=== PATIENT | male | born 1965 | race Caucasian/White ===

== ENCOUNTER 2021-07-13 16:56 | Inpatient (IN) | payer BC, SELFPAY ==
--- NOTE | ~2021-07-13 | CT_ITS ---
EXAMINATION: CT abdomen pelvis w con DATE: 07/13/2021 18:26 INDICATION: Bowel obstruction. Constipation. TECHNIQUE: Computed tomography (CT) of the abdomen and pelvis was performed with 100 mL Omnipaque 300 intravenous contrast. Automated exposure control and iterative reconstruction technique were employe d. The dose-length product was 1799.26 mGy-cm. COMPARISON: None. FINDINGS: The visualized portions of the lung bases demonstrate mild atelectasis. No pleural effusion . The heart size is normal. No pericardial effusion. The liver, gallbladder, spleen, pancreas, adrena l glands, and kidneys are normal. There is an umbilical hernia containing sigmoid colon. There is fat stranding in the hernia and posterior to the hernia. There are no dilated loops of bowel. The append ix is normal. There are no pathologically enlarged lymph nodes. There is no free intraperitoneal flui d. There is severe lower lumbar spondylosis. There is mild thoracic spondylosis. IMPRESSION: 1. Umbilical hernia containing nonobstructed sigmoid colon. Associated fat stranding may be inflammat ion or scarring. Reviewed, dictated and finalized at location A. IMPRESSION: 1. Umbilical hernia containing nonobstructed sigmoid colon. Associated fat stra nding may be inflammation or scarring.
[2021-07-13 16:59] VITALS: BP 182/76; PULSE 63; RESP 18; TEMP 36.3; O2SAT 100
[2021-07-13 17:15] VITALS: PULSE 64; RESP 16; TEMP 36.9; O2SAT 97
--- NOTE | 2021-07-13 17:28 | ED.ABDPAIN ---
HPI - Abdominal Pain General Chief Complaint: Abdominal Pain Stated Complaint: SBO, HERNIA Time Seen by Provider: 07/13/21 17:28 Source: patient and family Mode of arrival: ambulatory Limitations: no limitations History of Present Illness HPI narrative: Patient is 55 years old white male came to the emergency room with a diagnosis of bowel obstruction. Patient had history of no bowel movement for the last 10 days, was seen by his family physician 3 days ago, and was discharged on stool softeners without improvement, today was seen by his family physician again who ordered CT scan of the abdomen and showed that he had bowel obstruction with. Then was told to go to [facility]. Patient came without any CD or CT scan report. He denies any fever, chills, nausea, vomiting, abdominal pain. History of umbilical hernia for years, usually is reducible, was not able to reduce it for the last 48 hours. Related Data Home Medications Medication Instructions Recorded Confirmed atorvastatin 20 mg tablet 20 mg PO DAILY 12/15/20 01/03/21 hydrochlorothiazide 25 mg tablet 25 mg PO DAILY 12/15/20 01/03/21 losartan 50 mg tablet 50 mg PO DAILY 12/15/20 01/03/21 metformin 500 mg tablet 500 mg PO TID 12/15/20 01/03/21 cholecalciferol (vitamin D3) 125 125 mcg PO DAILY 01/03/21 01/03/21 mcg (5,000 unit) capsule semaglutide 0.25 mg SUBCUT WEEKLY 01/03/21 01/03/21 Allergies Allergy/AdvReac Type Severity Reaction Status Date / Time No Known Allergies Allergy Verified 07/13/21 17:14 Review of Systems Review of Systems: All systems reviewed & are unremarkable except as noted in HPI and below PMFSH Past Medical History Medical History History of diabetes mellitus History of high cholesterol Surgical History Surgical History History of lateral meniscus repair of right knee Family History Family History Father Asthma Hypoglycemic disorder Mother Diabetes mellitus Hypertension Social History Social History Smoking status: Former smoker Tobacco type: cigarettes Alcohol intake: current Alcohol use details: Socially Substance use: never Substance use type: does not use 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, [employer] Gender identity (if verbalized by the patient): Male Exam Narrative: General appearance: Well-developed, well-nourished Skin: Normal color Head: Normocephalic, nontraumatic Eyes: Clear conjunctiva ENT: Oropharynx normal, ears normal, nose normal Neck: Supple, nontender Chest and respiratory: Airway patent, no respiratory distress, no accessory muscle use Heart: Regular rate/rhythm Abdomen: Soft, diffusely tender with deep palpation, umbilical hernia 12 x 12 cm, irreducible, tender with deep palpation the skin of the hernia is shining, slightly red and bluish, no organomegaly, no bowel sounds Vascular: Normal peripheral pulses, normal capillary refill. 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 Date: 07/13/21 Time: 18:52 Consultation #2: Dr. Ramirez, Admit to hospitalist Date: 07/13/21 Time: 18:52 Vital Signs Vital signs: Vital Signs Temperature 36.3 C L 07/13/21 16:59 Pulse Rate 63 07/13/21 16:59 Respiratory Rate 18 07/13/21 16:59 Blood Pressure 182/76 H 07/13/21 16:59 Pulse Oximetry 100
[2021-07-13 17:38] LABS: Appearance Urine Clear (Clear); Basophils Absolute Auto 0.1 K/mm3 (0.0-0.1); Basophils Percent Auto 0.6 % (0.2-1.2); Bilirubin Urine Negative (Negative); Blood Urine Negative (Negative); Eosinophils Absolute Auto 0.1 K/mm3 (0-0.3); Eosinophils Percent Auto 1.3 % (0-4.4); Glucose Urine UA Negative (Negative); Hematocrit 39.8 % (42.0-52.0); Hemoglobin 12.7 g/dL (14.0-18.0); Immature Granulocyte Absolute 0.03 K/mm3 (0.00-0.031); Immature Granulocyte Percent A 0.3 % (0-0.5); Ketones Urine Negative (Negative); Leukocyte Esterase Ur Negative LEU/UL (Negative); Lymphocytes Absolute Auto 3.57 K/mm3 (0.9-3.2); Lymphocytes Percent Auto 33.5 % (18.3-44.2); Mean Corpuscular HGB Conc 31.9 g/dl (32-36); Mean Corpuscular Hemoglobin 28.8 pg (26-34); Mean Corpuscular Volume 90.2 fl (80-100); Mean Platelet Volume 10.9 fl (7.4-10.4); Monocytes Absolute Auto 0.7 K/mm3 (0.1-0.6); Monocytes Percent Auto 6.2 % (2.6-8.5); Neutrophils Absolute Auto 6.2 K/mm3 (1.3-6.7); Neutrophils Percent Auto 58.1 % (45.5-73.1); Nitrate Urine Negative (Negative); Platelet Count Result 316 k/mm3 (150-375); Protein Urine Negative (Negative); Red Blood Count 4.41 M/mm3 (4.6-6.20); Red Cell Distribution Width 13.2 % (11.5-14.5); Urobilinogen Urine 0.2 mg/dL (<2.0); White Blood Count 10.7 K/mm3 (4.5-10.0)
[2021-07-13 17:45] LABS: Add Urine Microscopic? NO; Color Urine Light Yellow (Yellow)
[2021-07-13 17:46] LABS: Alanine Aminotransferase 33 U/L (6-50); Albumin Level 4.2 g/dL (3.5-5.1); Alkaline Phosphatase 83 U/L (38-126); Anion Gap 10 mmol/L (8-16); Aspartate Amino Transferase 38 U/L (17-59); Bilirubin,Total 0.4 mg/dL (0.2-1.3); Blood Urea Nitrogen 12 mg/dL (9-20); Calcium 8.7 mg/dL (8.4-10.2); Carbon Dioxide 28 mmol/L (22-30); Chloride 101 mmol/L (98-107); Estimated CRCL calculation 162 ml/min; Estimated Glomerular Filt Rate > 60; Glucose 114 mg/dL (65-110); Lipase 112 U/L (23-300); Potassium 3.4 mmol/L (3.4-5.0); Sodium 139 mmol/L (137-145)
[2021-07-13] MEDS: SODIUM CHLORIDE 0.9% IV 1,000 ML 999 ML IV CONT (17:58)
[2021-07-13 19:16] LABS: Lactic Acid Reflex 1.1 mmol/L (0.7-2.0)
[2021-07-13] MEDS: LACTATED RINGERS 1,000 ML 150 ML IV CONT (19:33)
--- NOTE | 2021-07-13 20:02 | PM.IMHP ---
H&P: HPI History of Present Illness Date/Time: 07/13/21 20:02 Chief Complaint: Abdominal pain. Narrative: This is a 55-year-old male with past medical history significant for morbid obesity, hypertension, dyslipidemia, diabetes. Patient presents to the emergency room after he was seen and evaluated at his primary care physician's office due to constipation for 10 days has not been able to have a bowel movement however has been able to pass gas has been able to eat his meals denies any nausea, vomiting, no diarrhea, no hematemesis, no melena, no fevers, no rigors, no chills, no cough, no shortness of breath, no sputum production. Preliminary workup was significant for CT of abdomen and pelvis with umbilical hernia. According to patient this is easily reducible however has not been able to do so in the last 2 days or so also noticed discoloration via lashes purple in the area as well however denied any pain at the time of my visit. Patient has been admitted for further evaluation management and treatment. Review of Systems Review of Systems: Constipation for 10 days, non reducible umbilical hernia and change in color, abdominal pain. Constitutional: Constitutional: Denies chills, Denies fever(s), Denies malaise, Denies night sweats and Denies poor appetite Eyes: Eyes: Denies change in vision ENT: Denies dysphagia, Denies nasal congestion, Denies nasal discharge, Denies nasal obstruction and Denies odynophagia Cardiovascular: Cardiovascular: Reports pedal edema, Denies irregular heart rhythm, Reports leg edema, Denies lightheadedness, Denies radiating jaw, neck or arm pain, Denies palpitations, Denies dyspnea, Denies dyspnea on exertion and Denies orthopnea Respiratory: Respiratory: Denies cough and Denies dyspnea Gastrointestinal: Gastrointestinal: Reports abdominal pain, Denies melena, Denies hematochezia, Denies change in stool character, Denies coffee ground emesis, Reports constipation, Denies dysphagia, Denies dyspepsia, Denies heartburn, Denies diarrhea and Denies vomiting Comments: No reducible umbilical hernia Genitourinary: Genitourinary: Denies dysuria Musculoskeletal: Musculoskeletal: Denies arthralgias and Denies joint swelling Integumentary/Breasts: Skin/Breast: Denies rash Neurologic: Denies focal weakness and Denies Sensory deficit (Neuro) Psychiatric: Psychiatric: Reports no additional psychiatric complaints and Reports as per HPI Endocrine: Endocrine: Denies cold intolerance, Denies heat intolerance, Denies polyphagia, Denies polydipsia and Denies palpitations Hematologic/Lymphatic: Hematologic/Lymphatic: Reports no additional hematologic/lymphatic complaints and Reports as per HPI Allergic/Immunologic: Allergic/Immunologic: Reports no additional allergic/immunologic complaints and Reports as per HPI PMFSH Past Medical History Medical History History of diabetes mellitus History of high cholesterol Surgical History Surgical History History of lateral meniscus repair of right knee Family History Family History Father Asthma Hypoglycemic disorder Mother Diabetes mellitus Hypertension Social History Social History Smoking packs per day: 1 Smoking cigarettes per day: 20.0 Years smoked: 10 Smoking pack-years: 10.00 Smoking status: Former smoker Tobacco type: cigarettes Alcohol intake: current Drinks per week: 1 Alcohol use details: Socially Substance use: never Substance use type: does not use 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
[2021-07-13 20:22] LABS: SARS-CoV-2 RNA PCR Negative
--- NOTE | 2021-07-13 21:37 | PC.NURSE ---
This patient, Jasbir Fonseca, was admitted to [facility] Surg Room 314-02. Patient/family oriented to hospital policies and general routines including ID bracelet, bed and alarms, visiting hours, pain management, procedures, bathroom and other care routines, personal items, smoking policy, room service/diet, and visiting hours. Information on how to activate the Rapid Response Team has been discussed. Patient/Family are encouraged to report perceived risks to care and to ask questions if they do not understand what they are told or what they should do.
[2021-07-13 21:44] VITALS: BP 163/77; PULSE 66; RESP 18; TEMP 36.8; O2SAT 96
[2021-07-13 21:45] VITALS: BMI 55.3
[2021-07-14 00:17] VITALS: O2SAT 94
[2021-07-14] MEDS: LACTATED RINGERS 1,000 ML 150 ML IV CONT ×2 (03:31→10:10)
[2021-07-14 05:41] LABS: Glucose Point of Care 128 mg/dl (65-105)
[2021-07-14 05:54] VITALS: BP 154/90; PULSE 64; RESP 1; TEMP 36.2; O2SAT 96
[2021-07-14 06:15] LABS: Basophils Absolute Auto 0.1 K/mm3 (0.0-0.1); Basophils Percent Auto 0.7 % (0.2-1.2); Eosinophils Absolute Auto 0.2 K/mm3 (0-0.3); Eosinophils Percent Auto 2.1 % (0-4.4); Hematocrit 38.5 % (42.0-52.0); Hemoglobin 12.4 g/dL (14.0-18.0); Immature Granulocyte Absolute 0.03 K/mm3 (0.00-0.031); Immature Granulocyte Percent A 0.4 % (0-0.5); Lymphocytes Percent Auto 36.1 % (18.3-44.2); Mean Corpuscular HGB Conc 32.2 g/dl (32-36); Mean Corpuscular Hemoglobin 28.6 pg (26-34); Mean Corpuscular Volume 88.9 fl (80-100); Mean Platelet Volume 10.9 fl (7.4-10.4); Monocytes Absolute Auto 0.5 K/mm3 (0.1-0.6); Monocytes Percent Auto 6.7 % (2.6-8.5); Neutrophils Absolute Auto 3.9 K/mm3 (1.3-6.7); Platelet Count Result 288 k/mm3 (150-375); Red Blood Count 4.33 M/mm3 (4.6-6.20); Red Cell Distribution Width 13.1 % (11.5-14.5); White Blood Count 7.2 K/mm3 (4.5-10.0)
[2021-07-14 06:41] LABS: Anion Gap 8 mmol/L (8-16); Blood Urea Nitrogen 11 mg/dL (9-20); Calcium 8.1 mg/dL (8.4-10.2); Carbon Dioxide 27 mmol/L (22-30); Chloride 101 mmol/L (98-107); Estimated CRCL calculation 195 ml/min; Estimated Glomerular Filt Rate > 60; Glucose 120 mg/dL (65-110); Magnesium 1.9 mg/dL (1.6-2.3); Phosphorus 4.4 mg/dL (2.5-4.5); Potassium 4.1 mmol/L (3.4-5.0); Sodium 136 mmol/L (137-145)
[2021-07-14 07:43] LABS: Glucose Point of Care 142 mg/dl (65-105)
[2021-07-14 08:00] VITALS: PULSE 64; RESP 1; O2SAT 96
[2021-07-14] MEDS: TOLNAFTATE 1% POWDER 45 GM BTL 1 APPLIC TOPICAL (08:02)
[2021-07-14] MEDS: NEOMYCIN/POLYMYXIN/BACITRACIN OINTMENT 15 GM TUBE 1 APPLIC TOPICAL (08:02)
--- NOTE | 2021-07-14 08:15 | PM.IMPN ---
Progress Note: A&P Assessment and Plan (1) Umbilical hernia: Qualifiers: Obstruction and gangrene presence: without obstruction or gangrene Qualified Code(s): K42.9 - Umbilical hernia without obstruction or gangrene Code(s): K42.9 - Umbilical hernia without obstruction or gangrene Status: Acute Assessment and Plan: CT of abdomen and pelvis reviewed, which showed umbilical hernia containing nonobstructed sigmoid colon. Associated fat stranding may be inflammation or scarring. Hernia has become non reducible in the last 10 days per the patient, with some discoloration, and no BMs for 10 days. Surgery reduced the hernia at the bedside. Will add miralax/colace. Advance diet as tolerated per Surgery. Patient currently on clear liquids. Guy can be removed as patient can ambulate. Monitor infectious markers for signs of ischemia. (2) Constipation: Code(s): K59.00 - Constipation, unspecified Status: Acute Assessment and Plan: Has not had a bowel movement in 10 days. Did not respond to outpatient treatment. Monitor for return of bowel function. (3) Morbid obesity: Code(s): E66.01 - Morbid (severe) obesity due to excess calories Status: Acute Assessment and Plan: Lifestyle and diet modifications. Wound care consult (4) HTN (hypertension): Qualifiers: Hypertension type: primary hypertension Qualified Code(s): I10 - Essential (primary) hypertension Code(s): I10 - Essential (primary) hypertension Status: Acute Assessment and Plan: Restart patient on PO medications. (5) Non-insulin dependent diabetes mellitus: Status: Acute Assessment and Plan: Glucose 120 today Home metformin on hold during stay. Accu-Cheks q.6 hours Insulin sliding scale as needed Currently receiving LR for IVF Continue to monitor Subjective Date/time seen: 07/14/21 08:15 Interval history: This is a 55-year-old male with past medical history significant for morbid obesity, hypertension, dyslipidemia, diabetes. Patient presents to the emergency room after he was seen and evaluated at his primary care physician's office due to constipation for 10 days has not been able to have a bowel movement and has had pain with his umbilical hernia. He reports Dr. Ramirez reduced his hernia at bedside today. He still has not stooled. He denies abdominal pain, chest pain, shortness of breath. He has chronic lower extremity swelling, which he says is actually somewhat improved. The hernia was previously stuck and purple in color. Review of Systems Review of Systems: All systems reviewed & are unremarkable except as noted in HPI and below Exam Narrative: GENERAL APPEARANCE: morbidly obese male, allert and oriented x 3, in no apparent distress. HEENT: PERRL, EOMI. Sclerae anicteric. Moist mucous membranes. NECK: Supple. No JVD or obvious carotid bruits. RESPIRATORY: Respirations are nonlabored. Breath sounds are equal and clear bilaterally. No wheezes, Rhonchi, or rales. CARDIOVASCULAR: Regular rate and rhythm with normal S1-S2. No murmurs, gallops, or rubs. GASTROINTESTINAL: Soft, protuberant, and benign. large umbilical hernia with easily reducible bowel, no evidence of strangulation or gangrene. No mass, tenderness, guarding, or rebound. No organomegaly. Bowel sounds are present. SKIN: Warm, dry, well perfused. Good turgor. No lesions, nodules, or rashes noted. Warm and dry. No rash or lesions on limited exam. EXTREMITIES: Darkened skin in bilateral lower extremities with edema. No cyanosis, clubbing. NEUROLOGICAL: Alert. Cranial nerves 2-12 are grossly intact. No gross focal deficits to casual conversation. PSYCHIATRIC: Pleasant and cooperative with normal mood and affect. Objective Data Vital Signs Vital Signs: Vital Signs - 24 hr 07/13/21 16:59 07/13/21 17:15 07/13/21
[2021-07-14] MEDS: MUPIROCIN 2% OINT 22 GM TUBE 1 APPLIC EACH NARE (10:10)
--- NOTE | 2021-07-14 10:50 | PM.CNGS ---
Assessment and Plan Assessment and plan (1) Incarcerated umbilical hernia: Code(s): K42.0 - Umbilical hernia with obstruction, without gangrene Status: Acute Assessment and Plan: reduced at bedside today, pt reports relief of abdominal pain, will start diet, if tolerating ok to dc home c plans for interval repair robotically, long d/w pt and he is agreeable to this plan (2) HTN (hypertension): Qualifiers: Hypertension type: primary hypertension Qualified Code(s): I10 - Essential (primary) hypertension Code(s): I10 - Essential (primary) hypertension Status: Acute Assessment and Plan: stable, mgmt per primary (3) Non-insulin dependent diabetes mellitus: Status: Acute Assessment and Plan: stable, mgmt per primary (4) Morbid obesity: Code(s): E66.01 - Morbid (severe) obesity due to excess calories Status: Acute Assessment and Plan: dietary and lifestyle modifications, pt has had intentional 40 lbs wt loss History of Present Illness Consult details Consult date: 07/14/21 Reason for consult: abdominal pain Requesting physician: Marcy Bartlett PA-C Narrative: Pt is a 55 y/o M presenting to ED c/o severe periumbilical abd pain associated c nausea, decreased appetite over last few days. Pt reports he has known large umbilical hernia for years. Pt reports episode started when hernia became very hard, swollen and he was unable to reduce. Pt reports constipation during this time as well. Workup, including imaging, significant for incarcerated [facility] c sigmoid colon. Review of Systems Constitutional: Constitutional: Reports as per HPI, Reports anorexia, Denies chills, Reports fatigue, Denies fever(s), Reports lethargy, Reports poor appetite, Reports weakness, Denies weight gain and Denies weight loss Eyes: Eyes: Reports no additional eye complaints ENT: Reports system reviewed and no additional complaints, except as documented Cardiovascular: Cardiovascular: Reports no additional cardiovascular complaints Respiratory: Respiratory: Reports no additional respiratory complaints Gastrointestinal: Gastrointestinal: Reports as per HPI, Reports abdominal pain, Reports bloating, Reports change in bowel habits, Reports constipation, Reports GI cramping, Reports nausea and Denies vomiting Genitourinary: Genitourinary: Reports no additional male genitourinary complaints Musculoskeletal: Musculoskeletal: Reports no additional musculoskeletal complaints Integumentary/Breasts: Skin/Breast: Reports system reviewed and no additional complaints, except as docu Neurologic: Reports system reviewed and no additional complaints, except as documented Psychiatric: Psychiatric: Reports no additional psychiatric complaints Endocrine: Endocrine: Reports no additional endocrine complaints Hematologic/Lymphatic: Hematologic/Lymphatic: Reports no additional hematologic/lymphatic complaints Allergic/Immunologic: Allergic/Immunologic: Reports no additional allergic/immunologic complaints PMF Past Medical History Medical History History of diabetes mellitus History of high cholesterol Surgical History Surgical History History of lateral meniscus repair of right knee Family History Family History Father Asthma Hypoglycemic disorder Mother Diabetes mellitus Hypertension Social History Social History Smoking packs per day: 1 Smoking cigarettes per day: 20.0 Years smoked: 10 Smoking pack-years: 10.00 Smoking status: Former smoker Tobacco type: cigarettes Alcohol intake: current Drinks per week: 1 Alcohol use details: Socially Substance use: never Substance use type: does not use 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
[2021-07-14 11:31] LABS: Glucose Point of Care 132 mg/dl (65-105)
--- NOTE | 2021-07-14 12:18 | PC.NURSE ---
pt to advance as tolerated from clear liquid to dm diet.
[2021-07-14 14:00] VITALS: BP 150/82; PULSE 70; RESP 20; TEMP 36.1; O2SAT 97
--- NOTE | 2021-08-08 14:36 | PM.DS ---
DS: Admitting Diagnosis Discharge Date 07/14/21 1600 Admitting Diagnosis Umbilical hernia/constipation DS: Discharge Diagnosis Discharge Diagnosis (1) Umbilical hernia: Qualifiers: Obstruction and gangrene presence: without obstruction or gangrene Qualified Code(s): K42.9 - Umbilical hernia without obstruction or gangrene Code(s): K42.9 - Umbilical hernia without obstruction or gangrene Status: Acute (2) Constipation: Code(s): K59.00 - Constipation, unspecified Status: Acute (3) Morbid obesity: Code(s): E66.01 - Morbid (severe) obesity due to excess calories Status: Acute (4) HTN (hypertension): Qualifiers: Hypertension type: primary hypertension Qualified Code(s): I10 - Essential (primary) hypertension Code(s): I10 - Essential (primary) hypertension Status: Acute (5) Non-insulin dependent diabetes mellitus: Status: Acute Plan Discharge Diagnosis (1) Umbilical hernia: ?Qualifiers: ?Obstruction and gangrene presence:?without obstruction or gangrene? Qualified Code(s):?K42.9 - Umbilical hernia without obstruction or gangrene ?Code(s): K42.9 - Umbilical hernia without obstruction or gangrene ?Status:?Acute ?Assessment and Plan: CT of abdomen and pelvis reviewed, which showed umbilical hernia containing nonobstructed sigmoid colon. Associated fat stranding may be inflammation or scarring. Hernia has become non reducible in the last 10 days per the patient, with some discoloration, and no BMs for 10 days.? Surgery reduced the hernia at the bedside, ok to DC with follow up in office for elective repair. Will add miralax/colace. Patient's diet was advanced and he tolerated it well. Guy can be removed as patient can ambulate. (2) Constipation: ?Code(s): K59.00 - Constipation, unspecified ?Status:?Acute ?Assessment and Plan: Has not had a bowel movement in 10 days. Did not respond to outpatient treatment. Patient did finally have a bowel movement on this shift and surgery OK'd discharge at this time. Encourage bowel regimen upon discharge. (3) Morbid obesity: ?Code(s): E66.01 - Morbid (severe) obesity due to excess calories ?Status:?Acute ?Assessment and Plan: Lifestyle and diet modifications. (4) HTN (hypertension): ?Qualifiers: ?Hypertension type:?primary hypertension? Qualified Code(s):?I10 - Essential (primary) hypertension ?Code(s): I10 - Essential (primary) hypertension ?Status:?Acute ?Assessment and Plan: Restart patient on PO medications, discharge with home meds(5) Non-insulin dependent diabetes mellitus: ?Status:?Acute ?Assessment and Plan: Glucose 120 today Discharge with home meds DS: Summary Hospital Course Reason for hospitalization: Incarcerated umbilical hernia Hospital Course: See above for full hospital course Status at Discharge Cognitive/behavioral status at discharge: Progressing to baseline Time Spent with Patient Time attestation: Total time spent providing and/or coordinating discharge services: 35 minutes Exam Narrative: GENERAL APPEARANCE: morbidly obese male, allert and oriented x 3, in no apparent distress. HEENT: PERRL, EOMI. Sclerae anicteric. Moist mucous membranes. NECK: Supple. No JVD or obvious carotid bruits. RESPIRATORY: Respirations are nonlabored. Breath sounds are equal and clear bilaterally. No wheezes, Rhonchi, or rales. CARDIOVASCULAR: Regular rate and rhythm with normal S1-S2. No murmurs, gallops, or rubs. GASTROINTESTINAL: Soft, protuberant, and benign. large umbilical hernia with easily reducible bowel, no evidence of strangulation or gangrene. No mass, tenderness, guarding, or rebound. No organomegaly. Bowel sounds are present. SKIN: Warm, dry, well perfused. Good turgor. No lesions, nodules, or rashes noted. Warm and dry. No rash or lesions on limited exam.
== END 2021-07-14 16:15 | disposition home or self-care (01) | DRG 394 ==
LOC: ANHED 18:53 → ANH3MEDSUR 20:32
PROVIDERS: Emergency Medicine; Internal Medicine; Admitting Provider Internal Medicine; Emergency Provider Emergency Medicine; PCP Nurse Practitioner Family; Visit Provider Student in an Organized Health Care Education/Training Program
DX: K42.9 Umbilical hernia without obstruction or gangrene (principal); Z68.43 Body mass index [BMI] 50.0-59.9, adult; K59.00 Constipation, unspecified; Z20.822 Contact with and (suspected) exposure to COVID-19; E11.9 Type 2 diabetes mellitus without complications; E66.01 Morbid (severe) obesity due to excess calories; E78.5 Hyperlipidemia, unspecified; I10 Essential (primary) hypertension; R60.0 Localized edema; Z79.84 Long term (current) use of oral hypoglycemic drugs; Z87.891 Personal history of nicotine dependence
CPT/HCPCS: 36415; 74177; 80048; 80053; 81003; 82948; 83605; 83690; 83735; 84100; 85025; 96360; 99285; A9270; C9803; J7030; J7120; Q9967; U0003; U0005

== ENCOUNTER 2021-07-25 11:26 | Outpatient (CLI) | payer BC, SELFPAY ==
--- NOTE | 2021-07-25 11:35 | ECG_ITS ---
Measurements Intervals [place] Rate: 61 P: 47 MT: 201 QRS: 28 QRSD: 105 T: 14 QT: 383 QTc: 388 Interpretive Statements SINUS RHYTHM NORMAL ECG Electronically Signed On 07-25-2021 14:32:11 CDT by Enzo Gutierrez D.O.
== END 2021-07-25 11:27 | disposition home or self-care (01) ==
LOC: ANHSURGERY 11:32
PROVIDERS: PCP Nurse Practitioner Family; Visit Provider Surgery
DX: Z01.818 Encounter for other preprocedural examination (principal); K42.0 Umbilical hernia with obstruction, without gangrene
CPT/HCPCS: 36415; 86850; 86900; 86901; 93005

== ENCOUNTER 2021-07-27 00:42 | Day surgery (SDC) | payer BC, SELFPAY ==
[2021-07-19 15:35] VITALS: BMI 48.7
--- NOTE | 2021-07-19 15:38 | SUR.PREOP ---
Report to the Outpatient Waiting Room, entrance under the green pavilion located off [facility], at time _1000 on date _07/27/21 . OR Time: 1200 . - You and your visitor will be asked a series of questions to screen for COVID 19 for your protection. - Only one visitor is allowed at this time. - The patient visitor is requested to leave or wait in car when not with patient. - A mask is required within the hospital. Patients may have clear liquids (water, carbonated beverages, clear teas, apple juice) until 3 hours prior to surgery with a maximum of 20 ounces. - No food from midnight until time of surgery - Infants may have breast milk until 4 hours before surgery, infant formula 6 hours prior to surgery. - Children will be allowed to drink immediately following surgery. If applicable, please bring a bottle or sippy cup to assist with drinking. Juice, water, soda, and popsicles are readily available. For infants on formula, please bring formula the day of surgery. Pacifiers are allowed. Take the following medications with a SIP of water the morning of surgery: ____n/a Medications to discontinue per physician n/a Date to take last dose_n/a Please no make-up, nail romansh, hairspray, perfume, deodorant, or body powder the day of surgery. No jewelry (including any body piercings) or valuables the day of surgery, leave them at home. Please take a shower or bath the night before, or the morning of, surgery with an antibacterial soap. Wear comfortable, loose fitting clothing. Children are encouraged to wear pajamas. HIBICLENS SHOWER AM OF SURGERY. - Jewelry must be removed prior to entering the operating room. Rings and piercings that are not removed may be cut off. - The hospital will not accept responsibility for valuables. - Please leave all valuables, including medications, at home the day of surgery. If you are going home after surgery, a licensed log driver must drive you home. - NO public transportation without another adult. - We recommend that an adult stay with you for 24 hours following discharge. - We also recommend that you do not drive, make important decision, drink alcoholic beverages, or take any drugs that were not prescribed by your health care provider for at least 24 hours after your discharge time. For Pediatric surgeries, we recommend two adults accompany the child home (only one inside the building at this time). Follow any additional instructions given to you from your surgeon. If you or anyone in your household have experienced Covid symptoms in the past week, please notify your surgeon or the nurse liaison at the phone number below for possible testing. Telephone instructions given to _anjana mas and asked if any additional questions and then verbalized understanding. Patient advised to call surgeon office or pre surgery nurse liaison [phone] if any additional questions.
[2021-07-27] VITALS (9 sets, daily range): BP systolic 129–161; BP diastolic 72–84; PULSE 65–80; RESP 14–16; TEMP 36.3–37.1; O2SAT 92–100
[2021-07-27] MEDS: ACETAMINOPHEN 500 MG TABLET 1000 MG PO (10:25)
[2021-07-27 10:50] LABS: Glucose Point of Care 121 mg/dl (65-105)
[2021-07-27] MEDS: KETOROLAC 15 MG/ML VIAL (*BKC) IV PUSH (10:50)
[2021-07-27] MEDS: LACTATED RINGERS 1,000 ML 30 ML IV CONT ×2 (11:15→14:21)
--- NOTE | 2021-07-27 11:42 | WPDANESEPPF ---
Anes - Initial Pre Proc Eval Procedure: Operation Date: 07/27/21 12:00 Proposed Procedures p Robotic Assisted Incarcerated Umbilical Hernia Repair with Mesh - Linda Ramirez MD Date/Time: 07/27/21 11:42 Surgeon: Linda Ramirez MD Pre Op Diagnosis: Incar Umb Hernia Patient Data Age: 55 Gender: M Height: 1.93 m Weight: 175 kg Last Vital Signs Temp 98.7 F 07/27/21 10:11 Pulse 71 07/27/21 10:11 Resp 16 07/27/21 10:11 BP 161/84 H 07/27/21 10:11 Pulse Ox 97 07/27/21 10:11 O2 Del Method Room Air 07/27/21 10:11 Allergies Allergy/AdvReac Type Severity Reaction Status Date / Time No Known Allergies Allergy Verified 07/27/21 10:21 Home Medications Medication Instructions Recorded Confirmed Type atorvastatin 20 mg tablet 20 mg PO DAILY 12/15/20 07/27/21 History hydrochlorothiazide 25 mg tablet 25 mg PO DAILY 12/15/20 07/27/21 History losartan 50 mg tablet 50 mg PO DAILY 12/15/20 07/27/21 History metformin 500 mg tablet 1,000 mg PO BID 12/15/20 07/27/21 History semaglutide (Ozempic) 0.25 mg subcut WEEKLY 01/03/21 07/27/21 History cholecalciferol (vitamin D3) 25 25 mcg PO DAILY 07/19/21 07/27/21 History mcg (1,000 unit) tablet (Vitamin D3) Laboratory Tests 07/27/21 10:49 POC Capillary Glucose 121 mg/dl H mg/dl (65-105) Patient hx anesthesia problems: none Family hx anesthesia problems: none Results Review: All pre-operative results and documents have been reviewed as part of the pre-operative evaluation. [facility] Past Medical History Medical History History of diabetes mellitus History of high cholesterol Surgical History Surgical History History of lateral meniscus repair of right knee Family History Family History Father Asthma Hypoglycemic disorder Mother Diabetes mellitus Hypertension Social History Social History Smoking packs per day: 1 Smoking cigarettes per day: 20.0 Years smoked: 10 Smoking pack-years: 10.00 Smoking status: Former smoker Tobacco type: cigarettes Smoking end date: 02/25/99 Additional smoking assessment comments: 1ppd 10years cigarettes Alcohol intake: current Drinks per week: 2 Alcohol use details: Socially Substance use: never Substance use type: does not use Living arrangements: with family 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 Informed Consent: The patient's anesthetic plan and its attendant risks and benefits were discussed with the patient/family/POA. Questions were solicited and answers provided to the satisfaction of the patient/family/POA.
--- NOTE | 2021-07-27 11:47 | WPDHPUPDATE1 ---
History and Physical Update Update Date/Time: 07/27/21 11:47 History and Physical has been reviewed, including an updated exam of the patient. There are NO changes in the patient's condition. Risks, benefits, and alternatives have been discussed and questions answered. Patient agrees to proceed with procedure.
[2021-07-27] MEDS: ceFAZolin 3 GM/D5W 100 ML 100 ML IVPB (12:06)
[2021-07-27] MEDS: BUPIVACAINE HCL 0.5% PF 30 ML VIAL INFILTRATE (12:47)
--- NOTE | 2021-07-27 13:58 | W.PM.PROC2 ---
Procedure Note - Detailed Date of Procedure 07/27/21 Pre-op Diagnosis incarcerated umbilical hernia, SBO Post-op Diagnosis Same Procedure Performed robotic assisted incarcerated umbilical hernia repair with mesh Surgeon Linda Ramirez MD Anesthesia General Indications 55 y/o M presenting c incarcerated [facility] c resultant SBO Findings incarcerated loop of small intestine causing obstruction Description of Procedure The patient was taken the operating room placed in the supine position. After adequate induction of general anesthesia, the patient was prepped and draped in normal sterile fashion. A time-out was then done to verify the patient's identity as well as the procedure being performed. I began by making a 5 mm incision in the left upper quadrant. Through this, a Veress needle was placed into the peritoneal cavity and CO2 gas was insufflated. After adequate pneumoperitoneum was achieved, a 5 mm optiview trocar was placed through this incision. I then placed the laparoscope through this trocar site and under direct visualization I placed a 8 mm port in the left mid abdomen as well as an additional 8 mm port in the left lower abdomen. I then moved the camera to the lower port and replaced the 5 mm port with a 12 mm airport. The robot was then docked to the 3 port sites. I then went to the robotic console. I began by identifying the hernia. A moderate-sized incarcerated hernia was noted in the periumbilical region. Using graspers and some sharp dissection, I was able to reduce this hernia. The hernia was noted to contain a loop of small intestine that was noted to be at least partially obstructed. Once reduced, I also reduced and dissected out the hernia sac. I then closed the approximately 4 cm defect with 0 strata fix suture. I then placed a 4.6 inch round ventralex mesh into the abdominal cavity. The Vicryl stitch was placed in the middle of the mesh and brought up centering the mesh over the defect. Once this was done, I used 2 0 V lock suture x 2 to circumferentially suture the mesh to the abdominal. Once the mesh was completely sutured in, I was happy with our tension-free repair. The mesh was noted to have good overlap of the defect. At this point, the robot was undocked and all ports were removed. I then closed the 12 mm port site with an 0 Vicryl [id number] suture at the fascial level. All port sites were then closed with 4 O Monocryl subcuticular suture. The patient tolerated the procedure well, is extubated in the operating room postoperative, OB transferred to the recovery room in stable condition. Implants 4.6 in round ventralex mesh Estimated Blood Loss 10 Drains No Packing No Pathology None sent Complications No immediate complications Condition Stable Disposition PACU [facility] Billing Surgery - Charge Forward: Surgery Billing
[2021-07-27 14:36] LABS: Glucose Point of Care 132 mg/dl (65-105)
--- NOTE | 2021-08-05 16:12 | PM.DS ---
DS: Admitting Diagnosis Discharge Date 07/27/21 1600 Admitting Diagnosis Umbilical Hernia DS: Discharge Diagnosis Discharge Diagnosis (1) Umbilical hernia: Qualifiers: Obstruction and gangrene presence: without obstruction or gangrene Qualified Code(s): K42.9 - Umbilical hernia without obstruction or gangrene Code(s): K42.9 - Umbilical hernia without obstruction or gangrene Status: Acute Assessment and Plan: CT of abdomen and pelvis reviewed, which showed umbilical hernia containing nonobstructed sigmoid colon. Associated fat stranding may be inflammation or scarring. Hernia has become non reducible in the last 10 days per the patient, with some discoloration, and no BMs for 10 days.? Surgery reduced the hernia at the bedside, ok to DC with follow up in office for elective repair. Will add miralax/colace. Patient's diet was advanced and he tolerated it well. Guy can be removed as patient can ambulate. (2) Constipation: Code(s): K59.00 - Constipation, unspecified Status: Acute Assessment and Plan: Has not had a bowel movement in 10 days. Did not respond to outpatient treatment. Patient did finally have a bowel movement on this shift and surgery OK'd discharge at this time. Encourage bowel regimen upon discharge. (3) Morbid obesity: Code(s): E66.01 - Morbid (severe) obesity due to excess calories Status: Acute Assessment and Plan: Lifestyle and diet modifications. (4) HTN (hypertension): Qualifiers: Hypertension type: primary hypertension Qualified Code(s): I10 - Essential (primary) hypertension Code(s): I10 - Essential (primary) hypertension Status: Acute Assessment and Plan: Restart patient on PO medications, discharge with home meds (5) Non-insulin dependent diabetes mellitus: Status: Acute Assessment and Plan: Glucose 120 today Discharge with home meds DS: Summary Hospital Course Reason for hospitalization: Umbilical Hernia Hospital Course: See above for full hospital course Status at Discharge Cognitive/behavioral status at discharge: Progressing to baseline Time Spent with Patient Time attestation: Total time spent providing and/or coordinating discharge services: 35 minutes Exam Narrative: GENERAL APPEARANCE: morbidly obese male, allert and oriented x 3, in no apparent distress. HEENT:? PERRL, EOMI.? Sclerae anicteric. Moist mucous membranes. NECK:? Supple. No JVD or obvious carotid bruits. RESPIRATORY: Respirations are nonlabored. Breath sounds are equal and clear bilaterally. No wheezes, Rhonchi, or rales. CARDIOVASCULAR:? Regular rate and rhythm with normal S1-S2. No murmurs, gallops, or rubs. GASTROINTESTINAL:? Soft, protuberant, and benign. large umbilical hernia with easily reducible bowel, no evidence of strangulation or gangrene. No mass, tenderness, guarding, or rebound. No organomegaly. Bowel sounds are present. SKIN: Warm, dry, well perfused. Good turgor. No lesions, nodules, or rashes noted.? Warm and dry.? No rash or lesions on limited exam. EXTREMITIES:? Darkened skin in bilateral lower extremities with edema. No cyanosis, clubbing. NEUROLOGICAL:? Alert.? Cranial nerves 2-12 are grossly intact. No gross focal deficits to casual conversation. PSYCHIATRIC:? Pleasant and cooperative with normal mood and affect. Discharge Plan Discharge Patient Disposition: Home, Self-Care Discharge Instructions: DISCHARGE INSTRUCTION SHEET FOR HERNIA SURGERIES DR. HAYES PATIENT TO TAKE HOME 1. May shower in 24 hours, no soaking in bath x 2weeks. 2. Call office for: Wound increasingly painful or bleeding Vomiting Fever of greater than 101 degrees 3. If no bowel movement for three days, take 1 oz. (30 ml) Milk of Magnesia or MiraLax 17g 1 to 2 times daily. 4. No heavy lifting > 10-15 pounds x 6 weeks for hernia repairs. 5. No driving f
== END 2021-07-27 16:02 | disposition home or self-care (01) ==
PROVIDERS: PCP Nurse Practitioner Family; Visit Provider Surgery
PROC: (CPT 49653; principal; 2021-07-27 12:00)
DX: K42.0 Umbilical hernia with obstruction, without gangrene (principal); E11.9 Type 2 diabetes mellitus without complications; E78.00 Pure hypercholesterolemia, unspecified; Z87.891 Personal history of nicotine dependence; E66.01 Morbid (severe) obesity due to excess calories; Z68.42 Body mass index [BMI] 45.0-49.9, adult; Z79.84 Long term (current) use of oral hypoglycemic drugs
CPT/HCPCS: 49653; S2900; 82948; A9270; C1781; J0330; J0690; J1100; J1885; J2250; J2405; J2704; J2710; J3010; J7120

== ENCOUNTER 2021-09-12 15:32 | Outpatient (CLI) | payer BC, SELFPAY ==
--- NOTE | ~2021-09-12 | CT_ITS ---
EXAMINATION: CT abdomen wo con DATE: 09/12/2021 15:53 INDICATION: Incisional hernia. TECHNIQUE: Computed tomography (CT) of the abdomen was performed without intravenous contrast. Automa arline exposure control and iterative reconstruction technique were employed. The dose-length product wa s 1169.49 mGy-cm. COMPARISON: CT abdomen and pelvis 07/13/2021 FINDINGS: The visualized portions of the lung bases are clear without pneumonia or pleural effusion. The heart size is normal. No pericardial effusion. The liver, gallbladder, spleen, pancreas, and adre nal glands are normal. There is a 3 mm stone in right kidney. There is a 1 mm stone in left kidney. T here are no dilated loops of bowel. Partially visualized is a 9.2 x 8.5 cm fluid collection in anteri or abdominal wall. There is left common iliac lymphadenopathy with the largest node measuring 3.2 x 2 .2 cm. There is no free intraperitoneal fluid. There is severe lumbar spondylosis. IMPRESSION: 1. Partially visualized fluid collection in anterior abdominal wall at the site of the prior hernia, which may be a seroma. 2. Worsened left common iliac lymphadenopathy. Consider pelvis CT. Reviewed, dictated and finalized at location A.
== END 2021-09-12 15:33 | disposition home or self-care (01) ==
PROVIDERS: PCP Nurse Practitioner Family; Visit Provider Surgery
DX: K43.2 Incisional hernia without obstruction or gangrene (principal); K42.9 Umbilical hernia without obstruction or gangrene; M47.816 Spondylosis without myelopathy or radiculopathy, lumbar region; R59.0 Localized enlarged lymph nodes
CPT/HCPCS: 74150